=== PATIENT | male | born 1980 | race Caucasian/White ===

== ENCOUNTER 2020-11-03 18:18 | Emergency (ER) | payer OTHER, MEDICAID ==
[~2020-11-03] VITALS: Ht 182.9 cm; Wt 113.6 kg
[2020-11-03 18:25] VITALS: BP 125/74
== END 2020-11-03 21:47 | disposition left against medical advice (07) ==
LOC: ER 18:21
DX: R21 Rash and other nonspecific skin eruption (principal); Z53.21 Procedure and treatment not carried out due to patient leaving prior to being seen by health care provider

== ENCOUNTER 2020-11-07 12:21 | Emergency (ER) | payer OTHER, MEDICAID ==
[~2020-11-07] VITALS: Ht 182.9 cm; Wt 109.1 kg
[2020-11-07 12:29] VITALS: BP 131/84
[2020-11-07] MEDS ORDERED: KEN0.1O TP (14:38)
[2020-11-07] MEDS ORDERED: NAPR-56 PO (14:46)
== END 2020-11-07 14:49 | disposition home or self-care (01) ==
LOC: ER 12:23
DX: B35.6 Tinea cruris (principal); Z59.0 Homelessness; Z79.899 Other long term (current) drug therapy
CPT/HCPCS: 99283